=== PATIENT | male | born 1950 | race Caucasian/White ===

== ENCOUNTER 2019-03-31 02:15 | Emergency (ER) | payer MEDICARE ==
--- NOTE | 2019-03-31 04:42 | ER Document Report ---
ED Blood Pressure Problem - General Chief Complaint: High Blood Pressure Stated Complaint: HIGH BLOOD PRESSURE Time Seen by Provider: 03/31/19 02:30 Mode of Arrival: Ambulatory Information source: Patient Notes: Patient is a 69-year-old male presenting to the emergency department chief complaint of elevated blood pressure. Patient reports he is on Cardizem 180 mg twice daily. He states that he has previously been on losartan and lisinopril however his primary care provider has changed his blood pressure medication multiple times attempting to regulate his blood pressure. Patient reports he is taking his blood pressure multiple times daily, states today it was running in the 165/100 range. Tonight he states he took it it was 179/104. Patient reports he started having a headache and a "strange feeling in his head" so decided to come in to the emergency room. TRAVEL OUTSIDE OF THE [place] IN LAST 30 DAYS: No - Related Data Allergies/Adverse Reactions: No Known Allergies Allergy (Unverified 03/31/19 04:40) Past Medical History - General Information source: Patient - Social History Smoking Status: Never Smoker Frequency of alcohol use: None Drug Abuse: None Family History: Reviewed & Not Pertinent Patient has suicidal ideation: No Patient has homicidal ideation: No - Past Medical History Cardiac Medical History: Reports: Hx Hypertension Renal/ Medical History: Denies: Hx Peritoneal Dialysis Musculoskeletal Medical History: Reports Hx Arthritis Review of Systems - Review of Systems Constitutional: No symptoms reported EENT: No symptoms reported Cardiovascular: No symptoms reported Respiratory: No symptoms reported Gastrointestinal: No symptoms reported Genitourinary: No symptoms reported Male Genitourinary: No symptoms reported Musculoskeletal: No symptoms reported Skin: No symptoms reported Hematologic/Lymphatic: No symptoms reported Neurological/Psychological: Headaches Physical Exam - Vital signs Vitals: Temp Pulse Resp BP Pulse Ox 97.6 F 57 L 16 172/89 H 98 03/31/19 02:19 03/31/19 02:19 03/31/19 02:19 03/31/19 02:19 03/31/19 02:19 - Notes Notes: PHYSICAL EXAMINATION: GENERAL: Well-appearing, well-nourished and in no acute distress. HEAD: Atraumatic, normocephalic. EYES: Pupils equal round and reactive to light, extraocular movements intact, sclera anicteric, conjunctiva are normal. ENT: Nares patent, oropharynx clear without exudates. Moist mucous membranes. NECK: Normal range of motion, supple without lymphadenopathy LUNGS: Breath sounds clear to auscultation bilaterally and equal. No wheezes rales or rhonchi. HEART: Regular rate and rhythm without murmurs ABDOMEN: Soft, nontender, nondistended abdomen. No guarding, no rebound. No masses appreciated. Musculoskeletal: Normal range of motion, no pitting or edema. No cyanosis. NEUROLOGICAL: Cranial nerves grossly intact. Normal speech, normal gait. Normal sensory, motor exams PSYCH: Normal mood, normal affect. SKIN: Warm, Dry, normal turgor, no rashes or lesions noted. Course - Re-evaluation Re-evalutation: Head CT 03/31/19 04:00 IMPRESSION: 1. There is no evidence of acute intracranial pathology. Patient's blood pressure was mildly elevated on arrival however after multiple blood pressure rechecks patient's blood pressure is in the 140s systolic. Head CT is unremarkable as outlined above. All of this was discussed with the patient and his . I did recommend that they follow-up with his primary care provider for further management of his hypertension. They were agreeable to this plan. - Vital Signs Vital signs: Temp Pulse Resp BP Pulse Ox 97.6 F 57 L 12 159/80 H 98 03/31/19 02:19 03/31/19 02:19 03/31/19 06:01 03/31/19 06:01 03/31/19 06:01 Discharge - Discharge Clinical Impression: Hypertension Qualifiers: Hypertension type: unspecified Qualified Code(s): I10 - Essential (primary) hypertension Condition: Stable Disposition: HOME, SELF-CARE Additional Instructions: Your blood pressure here in the emergency department tonight was within an acceptable range. Please follow-up with your primary care provider, call them and let them know you are seen in the emergency department for hypertension and a headache. Let them know that your work-up here today was negative. They may want to consider adjusting your antihypertensives.
--- NOTE | 2019-03-31 05:17 | RADIOLOGY REPORT (SQ) ---
EXAM: CT head without IV contrast CLINICAL DATA: HTN, headache TECHNICAL DATA: Multiple axial CT images of the brain were performed followed by sagittal and coronal reconstructed images. The CT study is performed according to ALARA (as low as reasonably achievable) or ALARA/IMAGE GENTLY, with automatic adjustment of mA and/or kV according to patient size. Performed on: 03/31/2019 at 4:34 AM Comparisons: None. FINDINGS: There is no evidence of mass, acute mass effect or midline shift. There are no acute extra-axial fluid collections. There is no evidence of acute intracranial hemorrhage. The cerebral sulci and ventricles are normal in size and configuration. There are no focal abnormal areas of increased or decreased attenuation. There is mild mucosal thickening of the paranasal sinuses. The mastoid air cells are clear. The orbital contents are grossly unremarkable. No acute osseous abnormalities are identified. No focal soft tissue abnormalities are identified. IMPRESSION: 1. There is no evidence of acute intracranial pathology.
[2019-03-31 06:09] VITALS: BP 159/80
== END 2019-03-31 06:57 | disposition home or self-care (01) ==
LOC: ER 02:15
DX: I10 Essential (primary) hypertension (principal); Z79.899 Other long term (current) drug therapy; R51 Headache
CPT/HCPCS: 70450; 99283